=== PATIENT | female | born 1995 | race Caucasian/White ===

== ENCOUNTER 2018-07-11 21:27 | Emergency (ER) | payer MEDICAID ==
[~2018-07-11] VITALS: Ht 154.9 cm; Wt 68.0 kg
[2018-07-11 22:07] VITALS: Ht 154.9 cm; Wt 68.0 kg
[2018-07-11 22:39] LABS: BASOPHIL % 0.7 % (0-2); PLATELET COUNT 327 x10^3mcL (130-400); RED CELL DISTRIBUTION WIDTH 12.9 % (11.5-14.5)
[2018-07-11 22:57] LABS: CALCIUM 8.5 mg/dL (8.5-10.1); CARBON DIOXIDE 27.6 mmol/L (21-32); CHLORIDE SERUM 105 mmol/L (98-107); CREATININE SERUM 0.8 mg/dL (0.6-1.0); GFR1 > 60 mL/min; GLUCOSE SERUM 99 mg/dL (74-106); POTASSIUM SERUM 3.9 mmol/L (3.5-5.1); SODIUM SERUM 139 mmol/L (136-145)
[2018-07-11 23:02] LABS: ALBUMIN 3.6 g/dL (3.4-5.0); ALKALINE PHOSPHATASE 114 U/L (46-116); ALT/SGPT 17 U/L (14-59); AST/SGOT 20 U/L (15-37); LIPASE 144 IU/L (73-393); TOTAL PROTEIN, SERUM 7.9 g/dL (6.4-8.2)
[2018-07-12 00:30] VITALS: BP 109/66
== END 2018-07-12 00:30 | disposition home or self-care (01) ==
LOC: ED 21:27
PROVIDERS: Emergency Medicine
DX: R10.33 Periumbilical pain (principal)
CPT/HCPCS: 36415; Q0092

== ENCOUNTER 2019-08-19 16:48 | Inpatient (IN) | payer MEDICAID ==
[~2019-08-19] VITALS: Ht 152.4 cm; Wt 64.4 kg
[2019-08-19 17:01] VITALS: Ht 152.4 cm; Wt 64.4 kg
[2019-08-19 17:32] LABS: BASOPHIL % 0.4 % (0-2); PLATELET COUNT 340 x10^3mcL (130-400); RED CELL DISTRIBUTION WIDTH 12.1 % (11.5-14.5)
[2019-08-19 17:45] LABS: CALCIUM 8.9 mg/dL (8.5-10.1); GFR1 > 60 mL/min; SODIUM SERUM 128 mmol/L (136-145)
[2019-08-19 17:48] LABS: ALBUMIN 3.7 g/dL (3.4-5.0); ALKALINE PHOSPHATASE 125 U/L (46-116); ALT/SGPT 238 U/L (14-59); AST/SGOT 123 U/L (15-37); CARBON DIOXIDE 28.5 mmol/L (21-32); CHLORIDE SERUM 88 mmol/L (98-107); CREATININE SERUM 1.1 mg/dL (0.6-1.0); GLUCOSE SERUM 129 mg/dL (74-106); LIPASE 200 IU/L (73-393)
[2019-08-19 17:50] LABS: TOTAL PROTEIN, SERUM 8.3 g/dL (6.4-8.2)
[2019-08-19 17:52] LABS: POTASSIUM SERUM 2.2 mmol/L (3.5-5.1)
[2019-08-19 18:18] LABS: microscopic required? YES; urine erythrocyte 1+ (NEGATIVE)
[2019-08-19 22:18] VITALS: BP 110/70
[2019-08-20 05:03] VITALS: BP 104/52
[2019-08-20 06:21] LABS: BASOPHIL % 0.6 % (0-2); PLATELET COUNT 245 x10^3mcL (130-400); RED CELL DISTRIBUTION WIDTH 12.4 % (11.5-14.5)
[2019-08-20 06:33] LABS: CALCIUM 7.8 mg/dL (8.5-10.1); CARBON DIOXIDE 25.5 mmol/L (21-32); CHLORIDE SERUM 103 mmol/L (98-107); CREATININE SERUM 0.8 mg/dL (0.6-1.0); GFR1 > 60 mL/min; GLUCOSE SERUM 116 mg/dL (74-106); POTASSIUM SERUM 3.4 mmol/L (3.5-5.1); SODIUM SERUM 136 mmol/L (136-145)
[2019-08-20 08:17] VITALS: BP 94/54
[2019-08-20 09:42] VITALS: BP 94/54
[2019-08-20 16:10] VITALS: BP 116/72
[2019-08-20 20:50] VITALS: BP 106/65
[2019-08-21 05:50] VITALS: BP 100/60
[2019-08-21 09:11] VITALS: BP 113/68
[2019-08-21 10:17] LABS: BILIRUBIN DIRECT 0.91 mg/dL (0.0-0.2); BILIRUBIN TOTAL 1.2 mg/dL (0.20-1.00)
[2019-08-21 10:32] LABS: TOTAL PROTEIN, SERUM 5.8 g/dL (6.4-8.2)
[2019-08-21 10:33] LABS: ALBUMIN 2.4 g/dL (3.4-5.0)
[2019-08-21 13:18] VITALS: BP 94/54
== END 2019-08-21 14:15 | disposition home or self-care (01) | DRG 566 ==
LOC: ED 16:48 → MU 19:51
PROVIDERS: Emergency Medicine; Internal Medicine Gastroenterology; ADMIT Internal Medicine
DX: O99.611 Diseases of the digestive system complicating pregnancy, first trimester (principal); E87.1 Hypo-osmolality and hyponatremia; K80.10 Calculus of gallbladder with chronic cholecystitis without obstruction; E86.0 Dehydration; E87.6 Hypokalemia; Z3A.13 13 weeks gestation of pregnancy
CPT/HCPCS: G0378; J2543; J3480; J7040; J7042; Q0092